=== PATIENT | female | born 1945 | race Caucasian/White ===

== ENCOUNTER → 2016-12-13 | Outpatient (CLI) | payer MEDICARE ==
[~2016-12-13] MED LIST: COREG 6.25MG6.25 MG PO; LEVAQUIN500 MG PO; LIPITOR40 MG PO; LISINOPRIL HCTZ1 TAB PO; MELOXICAM15 MG PO; METFORMIN 500M500 M1 PO; NORCO 325 MG-51 TAB PO; TESSALON PERLE100 M1 PO
--- NOTE | 2016-12-15 14:38 | RADIOLOGY REPORT PS360 ---
DIG DIG MAMM-SCREEN SPENCER W/CAD CAD Screening ORDERING PHYSICIAN : Alonzo Berger MD PATIENT AGE: 70 years GENDER: Female COMPARISON: Previous mammograms: June 27, 2015 generally 09/03/2016 left breast. Also a October 2011 film screen mammogram bilateral INDICATION: Routine screening 70-year-old with a history of left breast cancer radiation chemotherapy June 2015. Could not complete the last radiation treatment as breast was to hard sore and inflamed from prior treatments . Currently taking tamoxifen TECHNIQUE: Standard CC and MLO images were obtained. R2 CAD reviewed. Nipple profile right cc and MLO view. FINDINGS: RIGHT BREAST: On today's nipple profile cc view there is a stellate nodule medial/central right right breast. Surprisingly is not readily appreciable on the standard CC view the standard CC view This measures at least 7 mm on cc view with more extensive stellate character at its margins. This is suspect for a significant stellate lesion/nodule on cc view, but dissipates significantly on the MLO view. Nonetheless is suspect on cc view and requires close further evaluation with spot views and ultrasound... On MLO view it either resides mid-breast versus superior breast central. Thus spot view both at A & AA marked on MLO view recommended.. 2 Small cluster of benign calcifications at lateral right breast appear stable and can be followed.. 1 is labeled XB and C LEFT BREAST Patient states the left breast has improved since following completion of radiation therapy,. However we do continue note diffuse generous skin thickening left breast... Postsurgical changes seen towards upper-outer quadrant left breast just beneath the skin at lumpectomy site. Modest localized Architectural distortion. No new findings here in this region. No new mass at left breast. There are numerous calcifications throughout the left breast but these appear similar to previous studies IMPRESSION: Right breast: ..an Elucive Stellate area at medial central right breast seen on one of the cc views, requires additional spot views and ultrasound to further evaluate Left breast: Interval lumpectomy with post surgical changes. Post radiation changes with persistent diffuse skin thickening No suspicious new findings. Follow-up in one year on left with the adequate BI-RADS CATEGORY: 0_Incomplete: Need additional imaging. RECOMMENDED FOLLOWUP: ADD ADDITIONAL IMAGING Right breast Spot views and ultrasound (A letter has been sent to the patient regarding results of the study.) .
== END ==
LOC: RAD 12-10 16:30
DX: C50.912 Malignant neoplasm of unspecified site of left female breast (principal); Z12.31 Encounter for screening mammogram for malignant neoplasm of breast
CPT/HCPCS: G0202

== ENCOUNTER 2017-03-10 10:18 | Emergency (ER) | payer MEDICARE ==
[~2017-03-10] VITALS: Ht 175.3 cm; Wt 99.8 kg
--- NOTE | 2017-03-10 10:35 | Emergency Room Report ---
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 N Clinical Suspician of Infection? N Mental Status: 1 - Regular (Normal Baseline) Sepsis Risk:Low Sepsis Risk Have you (or family members/close friends) recently traveled outside the [place]? N If Yes, where/when: Have you had exposure to infectious disease within the past month? N TB? Other? Specify: Source patient, RN notes reviewed, RN/MD Exam Limitations no limitations Comment This is a 71-year-old feel patient presented emergency room with dizziness, nasal congestion, nausea or vomiting, face pain, since yesterday evening. The patient has not taken her blood pressure pills last night, as well as this morning. Her blood pressure home was elevated, 200/110. Patient denies any previous similar episodes in the past. Patient becomes violently nauseated and dizzy when turning her head towards LEFT or RIGHT. ALLERGIES Coded Allergies: No Known Allergies (09/23/15) Home Medications Active Scripts Benzonatate (Tessalon Perle) 100 MG PO BIDP PRN cough #15 SGL Prov: 08/29/15 Reported Medications LISINOPRIL/HYDROCHLOROTHIAZIDE (Lisinopril-Hctz 20-25 MG Tab) 0.5 TAB PO DAILY Meloxicam (Meloxicam 15MG) 15 MG PO DAILY Carvedilol (Coreg 6.25MG) 6.25 MG PO DAILY Anastrozole (Arimidex) 1 MG PO DAILY PIOGLITAZONE HCL (Actos 30MG) 30 MG PO DAILY Atorvastatin Calcium (Atorvastatin) 40 MG PO QHS History Medical History General CAD? No Angina: No MD: No Hypertension? Yes Hyperlipidemia? No CHF? No DVT? No PE? No COPD? No Asthma? No Anemia? No GERD? No Gastric ulcers? No GI Bleed? No Hernia? No Thyroid Problems? No Hypothyroidism? No CVA? No Seizures? No Diabetes? Yes Insulin Dependent: No Insulin Pump: No Home FSBS? Yes Renal Insuffiency? No End Stage Renal Disease? No UTI? No Stones? No BPH? No GB Disease: Yes Nephritic Syndrome? No Asplenia? No Hepatitis? No Sickle Cell Disease? No Arthritis? No Migraines? No Cataracts? No Glaucoma? No MRSA? No HIV? No TB? No Anxiety? No Depression? Yes Cancer? Yes Site: LEFT BREAST More? No Immunization Hx DT/Tetanus > 10 Years Ago 2011? Pneumonia Received In Past Surgical Hx Previous Surgery?Y HYSTERECTOMY-3 TUMORS RIGHT BREAST BIOPSY LEFT BREAST LUMPECTOMY Family History Family Hx Diabetes No CAD Yes Hypertension Yes Hyperlipidemia No Cancer Yes TB No Social History Smoking Hx Smoker: Never Smoker Tobacco: No Alcohol Alcohol: No Review of Systems All Other Systems Reviewed and Negative Gastrointestinal nausea, vomiting Psychiatric/Neurological other (dizziness) Physical Exam Vital Signs Vital Signs Date Time Temp Pulse Resp B/P Pulse O2 O2 Flow FiO2 Ox Delivery Rate 03/10 1336 98.3 73 18 143/80 97 03/10 1334 98.3 73 18 143/80 97 03/10 1203 74 18 153/80 97 03/10 1119 74 18 162/88 97 03/10 1019 99.0 70 18 189/106 97 General Appearance normal appearance, WD/WN, mild distress Ear, Nose, Throat hearing grossly normal, postnasal discharge, tender bilateral maxillofacial sinuses Respiratory Status Yes: trachea midline, chest symmetrical, non tender chest. No: respiratory distress. Lung Sounds bilateral: normal breath sounds, lungs clear. 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 No Comment Upon reevaluation patient appears medically stable, clinically improving. Patient instructed to follow-up with one of the ENT specialist, as listed in the discharge instructions, take the medications prescribed as directed. If not better patient to return promptly to this, [facility], emergency room for evaluation. Results/Orders Laboratory Tests 03/10/17 1105: Urine Color YELLOW, Urine Appearance CLEAR, Urine pH 8.0, Ur Specific [place] 1.015, Urine Protein NEGATIVE, Urine Ketones NEGATIVE, Urine Blood 2+ H, Urine Nitrate NEGATIVE, Urine Bilirubin NEGATIVE, Urine Urobilinogen 0.2, Ur Leukocyte Esterase NEGATIVE, Urine RBC 10-20, Urine WBC OCC, Ur Squamous Epith Cells 3-5, Urine Bacteria 1+, Urine Glucose NEGATIVE 03/10/17 1047: Sodium 140, Potassium 4.1, Chloride 104, Carbon Dioxide 29, BUN 29 H, Creatinine 1.4 H, Estimated Creat Clear 58, Estimated GFR (MDRD) 37 L, Glucose 117 H, Calcium 9.4, Total Bilirubin 0.4, AST 15, ALT 13, Alkaline Phosphatase 63, Total Protein 7.9, Albumin 3.3 L, Globulin 4.6 H, Albumin/Globulin Ratio 0.7 L, Amylase 46, Lipase 293, WBC 4.3 L, RBC 3.59 L, Hgb 11.0 L, Hct 33.2 L, MCV 92.5, RDW 13.2, Plt Count 260, MPV 8.4, Gran % 58.8, Gran # 2.5, Lymphocytes % 28.8, Monocytes % 9.1, Eosinophils % 3.0, Basophils % 0.3, Lymphocytes # 1.2, Monocytes # 0.4, Eosinophils # 0.1, Basophils # 0.0, PUBS MCHC 33.1, MCH 30.7 Current Medication Orders Sig/Dragan Start time Last Medication Dose Route Stop Time Status Admin Amoxicillin/ 500 MG ONCE ONE 03/10 1330 DC 03/10 Clavulanate Potassium PO 03/10 1331 1329 Amoxicillin/ 0 .STK-MED ONE 03/10 1327 DC Clavulanate Potassium PO Clonidine HCl 0 .STK-MED ONE 03/10 1323 DC .ROUTE Clonidine HCl 0.1 MG ONCE ONE 03/10 1200 CAN PO 03/10 1201 Hydralazine HCl 0 .STK-MED ONE 03/10 1047 DC .ROUTE Hydralazine HCl 10 MG ONCE ONE 03/10 1045 DC 03/10 IV 03/10 1046 1050 Meclizine HCl 50 MG ONCE ONE 03/10 1045 DC 03/10 PO 03/10 1046 1042 Ondansetron HCl 4 MG ONCE ONE 03/10 1045 CAN IV 03/10 1046 Sodium Chloride 10 ML PRN PRN 03/10 1045 DCD IV 03/11 1034 Sodium Chloride 1,000 ML .Q1H1M 03/10 1045 DC 03/10 IV 03/10 1145 1043 Sodium Chloride 10 ML PRN PRN 03/10 1045 DCD IV 03/11 1034 Meclizine HCl 0 .STK-MED ONE 03/10 1042 DC .ROUTE Sodium Chloride 1,000 ML .STK-MED ONE 03/10 1037 DC IV Orders Procedure Date/time Status DIET-NOTHING BY MOUTH 03/[address] HEAD REQ 03/10 1200 Active ELECTROCARDIOGRAM REQUEST 03/10 1034 Active IV SALINE LOCK 03/10 1034 Active URINALYSIS/COMPLETE 03/10 1034 Complete LIPASE 03/10 1034 Complete COMPLETE METABOLIC PANEL 03/10 1034 Complete CBC WITH AUTO DIFF 03/10 1034 Complete AMYLASE 03/10 1034 Complete 12 LEAD EKG-BESSON (INITIAL) 03/10 1030 Active XRAY/CT/US XRAY/CT/US CT head CT interpretation by discussed w/radiologist CT Results abnormal Comment No ICH, consistent with extensive maxillary sinus disease. See radiologist's report Departure Departure Time of Disposition 1309 Disposition DC Home or Self Care(routine) Clinical Impression Primary Impression: Acute sinusitis Qualifiers: Sinusitis location: unspecified location Recurrence: not specified as recurrent Qualified Code: J01.90 - Acute sinusitis, unspecified Secondary Impressions: Hypertension Qualifiers: Hypertension type: unspecified Qualified Code: I10 - Essential ( primary) hypertension Labyrinthitis Qualifiers: Laterality: bilateral Qualified Code: H83.03 - Labyrinthitis, bilateral Vertigo Condition STABLE Referrals Evaristo HAHN, : Today after leaving ER Please call the office and schedule a follow-up appointment Horacio Portillo MD (PCP/Family) Cali Rouse MD Please call the office and schedule a follow-up appointment Patient Instructions DI for Sinusitis Additional Instructions Please take the medications prescribed as directed, follow-up with one of the ENT specialist listed above, at your earliest convenience (within the next 3-5 days). Please take the medications prescribed as instructed. If no better, please return promptly to this, same, emergency room for reevaluation. Discharge Counseling Counseled pt/family regarding diagnosis, test results, medications/RX, home care, follow up needs Comment Please take the medications prescribed as directed, follow-up with one of the ENT specialist listed above, at your earliest convenience (within the next 3-5 days). Please take the medications prescribed as instructed. If no better, please return promptly to this, same, emergency room for reevaluation. Prescriptions Current Visit Scripts Amoxicillin/Potassium Clav (Augmentin 875-125 Tablet) 1 EACH PO BID #20 TAB Cetirizine Hcl (Zyrtec) 10 MG PO DAILY #30 SGL MECLIZINE HCL (Meclizine 25MG) 25 MG PO QIDP PRN dizziness #20 TABLET ED Critical Care Critical Care No at [id number]
[2017-03-10 10:56] LABS: LYMPH # 1.2 K/mm3 (0.7-4.5); LYMPH % 28.8 % (10-50.0)
[2017-03-10] MEDS ORDERED: ARIMIDEX1 MG PO (11:03)
[2017-03-10] MEDS ORDERED: ACTOS30 MG PO (11:04)
[2017-03-10 11:16] LABS: URINE BILIRUBIN - DIPSTICK NEGATIVE (NEG); URINE BLOOD 2+ (NEG)
--- NOTE | 2017-03-10 13:06 | RADIOLOGY REPORT PS360 ---
CT HEAD W/O CONTRAST HISTORY: DIZZINESS ORDERING PHYSICIAN: Prince Roca MD PATIENT AGE: 71 years COMPARISON: None TECHNIQUE: Axial images obtained without contrast. Brain and bone windows reviewed. FINDINGS: No midline shift, mass effect, intracranial hemorrhage, hydrocephalus, or extra-axial fluid collection is evident. The calvarium has an unremarkable appearance. No mastoid effusion. There is complete opacification of the left maxillary sinus as well as left ethmoid sinuses and left frontal sinus. There is thinning of the medial wall the left maxillary sinus with questionable discontinuity.. IMPRESSION: 1. No acute intracranial findings. 2. Extensive left-sided maxillary, ethmoid, and frontal sinusitis with questionable discontinuity along the medial wall of the left maxillary sinus.
[2017-03-10] MEDS ORDERED: MECLIZINE 25MG25 MG PO (13:12)
[2017-03-10] MEDS ORDERED: ZYRTEC ALLERGY10 MG PO (13:12)
[2017-03-10] MEDS ORDERED: AUGMENTIN 875-1 EACH PO (13:12)
[2017-03-10 13:36] VITALS: BP 143/80
== END 2017-03-10 13:36 | disposition home or self-care (01) ==
LOC: ER 10:18
PROVIDERS: Emergency Medicine
DX: J01.90 Acute sinusitis, unspecified (principal); I10 Essential (primary) hypertension; H83.03 Labyrinthitis, bilateral; R42 Dizziness and giddiness; E11.9 Type 2 diabetes mellitus without complications; Z79.899 Other long term (current) drug therapy